=== PATIENT | male | born 1965 | race Caucasian/White ===

== ENCOUNTER 2022-12-02 08:22 | Day surgery (SDC) | payer OTHER ==
[2022-12-01 17:02] VITALS: BMI 31.1
[2022-12-02 10:45] VITALS: TEMP 97.8
[2022-12-02 11:29] VITALS: BP 124/67; PULSE 70; RESP 16
== END 2022-12-02 11:11 | disposition home or self-care (01) ==
LOC: FECT 08:22
PROVIDERS: ATTEND Psychiatry & Neurology Psychiatry
PROC: GZB4ZZZ Other Electroconvulsive Therapy (ICD-10-PCS; principal; 2022-12-02 09:55)
DX: F25.9 Schizoaffective disorder, unspecified (principal)
CPT/HCPCS: 82962; 90870; 94760

== ENCOUNTER 2022-12-06 08:35 | Day surgery (SDC) | payer OTHER ==
[2022-12-05 11:43] VITALS: BMI 31.1
[~2022-12-06 08:35] MED LIST: ACETAMINOPHEN 325 MG TABLET (FP) PO PRN; LACTATED RINGERS SOLUTION 1,000 ML IV SCH
[2022-12-06] MEDS ORDERED: PROPOFOL 20 ML ONE (10:19)
[2022-12-06] MEDS ORDERED: ONDANSETRON 4 MG/2 ML VIAL ONE (10:19)
[2022-12-06] MEDS ORDERED: SUCCINYLCHOLINE CHLORIDE 200 MG/10 ML SYRINGE ONE (10:19)
[2022-12-06] MEDS ORDERED: KETOROLAC TROMETHAMINE 30 MG/1 ML VIAL ONE (10:19)
[2022-12-06 11:53] VITALS: TEMP 98.2
[2022-12-06 12:13] VITALS: BP 116/71; PULSE 64; RESP 16
== END 2022-12-06 12:00 | disposition home or self-care (01) ==
LOC: FECT 08:35
PROVIDERS: ATTEND Psychiatry & Neurology Psychiatry
PROC: GZB4ZZZ Other Electroconvulsive Therapy (ICD-10-PCS; principal; 2022-12-06 10:56)
DX: F25.9 Schizoaffective disorder, unspecified (principal)
CPT/HCPCS: 82962; 90870; 94760

== ENCOUNTER 2022-12-08 08:30 | Day surgery (SDC) | payer OTHER ==
[2022-12-06 17:08] VITALS: BMI 31.1
[2022-12-08] MEDS ORDERED: KETAMINE HCL 500 MG/10 ML VIAL ONE (09:47)
[2022-12-08 10:55] VITALS: RESP 18; TEMP 97.2
[2022-12-08 11:05] VITALS: BP 130/75; PULSE 62
== END 2022-12-08 11:52 | disposition home or self-care (01) ==
LOC: FECT 08:30
PROVIDERS: ATTEND Psychiatry & Neurology Psychiatry
PROC: GZB4ZZZ Other Electroconvulsive Therapy (ICD-10-PCS; principal; 2022-12-08 09:57)
DX: F25.9 Schizoaffective disorder, unspecified (principal)
CPT/HCPCS: 82962; 90870; 94760

== ENCOUNTER 2022-12-09 07:33 | Day surgery (SDC) | payer OTHER ==
[2022-12-07 08:34] VITALS: BMI 31.1
[2022-12-09] MEDS ORDERED: ONDANSETRON 4 MG/2 ML VIAL ONE (08:14)
[2022-12-09] MEDS ORDERED: PROPOFOL 20 ML ONE ×2 (08:14→08:15)
[2022-12-09] MEDS ORDERED: KETOROLAC TROMETHAMINE 30 MG/1 ML VIAL ONE (08:14)
[2022-12-09] MEDS ORDERED: SUCCINYLCHOLINE CHLORIDE 200 MG/10 ML SYRINGE ONE (08:14)
[2022-12-09 09:03] VITALS: RESP 20
[2022-12-09 09:19] VITALS: TEMP 97.7
[2022-12-09 10:19] VITALS: BP 116/72; PULSE 72
== END 2022-12-09 10:30 | disposition home or self-care (01) ==
LOC: FECT 07:33
PROVIDERS: ATTEND Psychiatry & Neurology Psychiatry
PROC: GZB4ZZZ Other Electroconvulsive Therapy (ICD-10-PCS; principal; 2022-12-09 08:18)
DX: F25.9 Schizoaffective disorder, unspecified (principal)
CPT/HCPCS: 82962; 90870; 94760

== ENCOUNTER 2022-12-13 08:12 | Day surgery (SDC) | payer OTHER ==
[2022-12-13 08:32] VITALS: BMI 30.8
[2022-12-13 11:18] VITALS: TEMP 98.4
[2022-12-13 11:20] VITALS: BP 128/76; PULSE 72; RESP 19
== END 2022-12-13 12:27 | disposition home or self-care (01) ==
LOC: FECT 08:12
PROVIDERS: ATTEND Psychiatry & Neurology Psychiatry
PROC: GZB4ZZZ Other Electroconvulsive Therapy (ICD-10-PCS; principal; 2022-12-13 10:08)
DX: F25.1 Schizoaffective disorder, depressive type (principal)
CPT/HCPCS: 82962; 90870; 94760

== ENCOUNTER 2022-12-27 08:35 | Day surgery (SDC) | payer OTHER ==
[2022-12-23 13:58] VITALS: BMI 31.1
[2022-12-27] MEDS ORDERED: KETAMINE HCL 500 MG/10 ML VIAL ONE (12:15)
[2022-12-27 12:51] VITALS: TEMP 97.9
[2022-12-27 13:29] VITALS: RESP 18
[2022-12-27 13:42] VITALS: BP 121/89; PULSE 74
== END 2022-12-27 13:45 ==
LOC: FECT 08:35
PROVIDERS: ATTEND Psychiatry & Neurology Psychiatry
PROC: GZB4ZZZ Other Electroconvulsive Therapy (ICD-10-PCS; principal; 2022-12-27 12:27)
DX: F25.9 Schizoaffective disorder, unspecified (principal)
CPT/HCPCS: 82962; 90870; 94760

== ENCOUNTER 2022-12-29 09:04 | Day surgery (SDC) | payer OTHER ==
[2022-12-27 07:35] VITALS: BMI 31.1
[2022-12-29] MEDS ORDERED: KETAMINE HCL 500 MG/10 ML VIAL ONE (11:01)
[2022-12-29 11:47] VITALS: TEMP 97.3
[2022-12-29 12:08] VITALS: RESP 18
[2022-12-29 12:24] VITALS: BP 131/82; PULSE 69
== END 2022-12-29 12:30 | disposition home or self-care (01) ==
LOC: FECT 09:04
PROVIDERS: ATTEND Psychiatry & Neurology Psychiatry
PROC: GZB4ZZZ Other Electroconvulsive Therapy (ICD-10-PCS; principal; 2022-12-29 11:12)
DX: F25.9 Schizoaffective disorder, unspecified (principal)
CPT/HCPCS: 82962; 90870; 94760

== ENCOUNTER 2022-12-30 08:37 | Day surgery (SDC) | payer OTHER ==
[2022-12-28 15:44] VITALS: BMI 31.1
[2022-12-30 09:18] VITALS: TEMP 97.8
[2022-12-30] MEDS ORDERED: KETOROLAC TROMETHAMINE 30 MG/1 ML VIAL ONE (11:06)
[2022-12-30] MEDS ORDERED: DEXAMETHASONE SOD PHOSPHATE 4 MG/1 ML VIAL ONE (11:10)
[2022-12-30] MEDS ORDERED: ONDANSETRON 4 MG/2 ML VIAL ONE (11:10)
[2022-12-30] MEDS ORDERED: PROPOFOL 20 ML ONE (11:10)
[2022-12-30 12:39] VITALS: RESP 18
[2022-12-30 12:42] VITALS: BP 131/84; PULSE 75
== END 2022-12-30 12:45 ==
LOC: FECT 08:37
PROVIDERS: ATTEND Psychiatry & Neurology Psychiatry
PROC: GZB4ZZZ Other Electroconvulsive Therapy (ICD-10-PCS; principal; 2022-12-30 11:19)
DX: F25.9 Schizoaffective disorder, unspecified (principal)
CPT/HCPCS: 82962; 90870; 94760

== ENCOUNTER 2023-01-03 08:44 | Day surgery (SDC) | payer OTHER ==
[2023-01-02 07:24] VITALS: BMI 31.1
[2023-01-03] MEDS ORDERED: KETAMINE HCL 500 MG/10 ML VIAL ONE (10:46)
[2023-01-03 11:48] VITALS: TEMP 98.2
[2023-01-03 11:52] VITALS: RESP 18
[2023-01-03 12:42] VITALS: BP 139/89; PULSE 64
== END 2023-01-03 12:30 ==
LOC: FECT 08:44
PROVIDERS: ATTEND Psychiatry & Neurology Psychiatry
PROC: GZB4ZZZ Other Electroconvulsive Therapy (ICD-10-PCS; principal; 2023-01-03 10:58)
DX: F25.1 Schizoaffective disorder, depressive type (principal)
CPT/HCPCS: 82962; 90870; 94760

== ENCOUNTER 2023-01-05 08:27 | Day surgery (SDC) | payer OTHER ==
[2023-01-03 15:11] VITALS: BMI 31.1
[2023-01-05] MEDS ORDERED: KETAMINE HCL 500 MG/10 ML VIAL ONE (10:36)
[2023-01-05] MEDS ORDERED: SUCCINYLCHOLINE CHLORIDE 200 MG/10 ML SYRINGE ONE ×2 (10:39→11:03)
[2023-01-05] MEDS ORDERED: DEXAMETHASONE SOD PHOSPHATE 4 MG/1 ML VIAL ONE (10:41)
[2023-01-05] MEDS ORDERED: ONDANSETRON 4 MG/2 ML VIAL ONE (10:41)
[2023-01-05] MEDS ORDERED: KETOROLAC TROMETHAMINE 30 MG/1 ML VIAL ONE (10:41)
[2023-01-05 12:47] VITALS: RESP 16; TEMP 98
[2023-01-05 12:49] VITALS: BP 126/80; PULSE 74
== END 2023-01-05 12:25 ==
LOC: FECT 08:27
PROVIDERS: ATTEND Psychiatry & Neurology Psychiatry
PROC: GZB4ZZZ Other Electroconvulsive Therapy (ICD-10-PCS; principal; 2023-01-05 10:44)
DX: F25.9 Schizoaffective disorder, unspecified (principal)
CPT/HCPCS: 82962; 90870; 94760

== ENCOUNTER 2023-01-12 08:36 | Day surgery (SDC) | payer OTHER ==
[2023-01-03 16:48] VITALS: BMI 31.1
[2023-01-12 09:17] VITALS: RESP 18
[2023-01-12] MEDS ORDERED: KETAMINE HCL 500 MG/10 ML VIAL ONE (10:33)
[2023-01-12] MEDS ORDERED: PROPOFOL 20 ML ONE (10:33)
[2023-01-12] MEDS ORDERED: KETOROLAC TROMETHAMINE 30 MG/1 ML VIAL ONE (10:33)
[2023-01-12] MEDS ORDERED: ONDANSETRON 4 MG/2 ML VIAL ONE (10:33)
[2023-01-12] MEDS ORDERED: SUCCINYLCHOLINE CHLORIDE 200 MG/10 ML SYRINGE ONE (10:34)
[2023-01-12 11:27] VITALS: BP 132/91; PULSE 67; TEMP 97.8
== END 2023-01-12 12:00 ==
LOC: FECT 08:36
PROVIDERS: ATTEND Psychiatry & Neurology Psychiatry
PROC: GZB4ZZZ Other Electroconvulsive Therapy (ICD-10-PCS; principal; 2023-01-12 10:40)
DX: F25.9 Schizoaffective disorder, unspecified (principal)
CPT/HCPCS: 82962; 90870; 94760

== ENCOUNTER 2023-01-13 06:37 | Day surgery (SDC) | payer OTHER ==
[2023-01-12 17:24] VITALS: BMI 31.1
[2023-01-13] MEDS ORDERED: KETAMINE HCL 500 MG/10 ML VIAL ONE (07:33)
[2023-01-13 08:50] VITALS: TEMP 97.3
[2023-01-13 09:05] VITALS: BP 128/71; PULSE 68; RESP 18
== END 2023-01-13 09:09 | disposition home or self-care (01) ==
LOC: FECT 06:37
PROVIDERS: ATTEND Psychiatry & Neurology Psychiatry
PROC: GZB4ZZZ Other Electroconvulsive Therapy (ICD-10-PCS; principal; 2023-01-13 07:50)
DX: F25.1 Schizoaffective disorder, depressive type (principal)
CPT/HCPCS: 82962; 90870; 94760

== ENCOUNTER 2023-01-17 09:17 | Day surgery (SDC) | payer OTHER ==
[2023-01-13 08:49] VITALS: BMI 31.1
[2023-01-17] MEDS ORDERED: KETAMINE HCL 500 MG/10 ML VIAL ONE (11:05)
[2023-01-17 12:09] VITALS: RESP 16; TEMP 97.8
[2023-01-17 12:35] VITALS: BP 130/68; PULSE 68
== END 2023-01-17 12:35 ==
LOC: FECT 09:17
PROVIDERS: ATTEND Psychiatry & Neurology Psychiatry
PROC: GZB4ZZZ Other Electroconvulsive Therapy (ICD-10-PCS; principal; 2023-01-17 11:17)
DX: F25.1 Schizoaffective disorder, depressive type (principal)
CPT/HCPCS: 82962; 90870; 94760

== ENCOUNTER 2023-01-20 07:19 | Day surgery (SDC) | payer OTHER ==
[2023-01-13 09:03] VITALS: BMI 31.1
[2023-01-20] MEDS ORDERED: KETAMINE HCL 500 MG/10 ML VIAL ONE (09:05)
[2023-01-20 09:33] VITALS: RESP 16
[2023-01-20 10:17] VITALS: TEMP 98.4
[2023-01-20 10:36] VITALS: BP 115/71; PULSE 72
== END 2023-01-20 10:44 ==
LOC: FECT 07:19
PROVIDERS: ATTEND Psychiatry & Neurology Psychiatry
PROC: GZB4ZZZ Other Electroconvulsive Therapy (ICD-10-PCS; principal; 2023-01-20 09:15)
DX: F25.9 Schizoaffective disorder, unspecified (principal)
CPT/HCPCS: 82962; 90870; 94760

== ENCOUNTER 2023-01-26 08:42 | Day surgery (SDC) | payer OTHER ==
[2023-01-20 07:03] VITALS: BMI 31.1
[2023-01-26] MEDS ORDERED: KETAMINE HCL 500 MG/10 ML VIAL ONE (10:06)
[2023-01-26] MEDS ORDERED: PROPOFOL 20 ML ONE (10:08)
[2023-01-26] MEDS ORDERED: SUCCINYLCHOLINE CHLORIDE 200 MG/10 ML SYRINGE ONE (10:08)
[2023-01-26] MEDS ORDERED: ONDANSETRON 4 MG/2 ML VIAL ONE (10:09)
[2023-01-26] MEDS ORDERED: KETOROLAC TROMETHAMINE 30 MG/1 ML VIAL ONE (10:09)
[2023-01-26] MEDS ORDERED: DEXAMETHASONE SOD PHOSPHATE 4 MG/1 ML VIAL ONE (10:09)
[2023-01-26] MEDS ORDERED: LACTATED RINGERS SOLUTION 1,000 ML IV SCH (10:30)
[2023-01-26 11:31] VITALS: TEMP 97.4
[2023-01-26 11:33] VITALS: BP 134/81; PULSE 67; RESP 19
== END 2023-01-26 11:43 | disposition home or self-care (01) ==
LOC: FECT 08:42
PROVIDERS: ATTEND Psychiatry & Neurology Psychiatry
PROC: GZB4ZZZ Other Electroconvulsive Therapy (ICD-10-PCS; principal; 2023-01-26 10:13)
DX: F25.9 Schizoaffective disorder, unspecified (principal)
CPT/HCPCS: 82962; 90870; 94760

== ENCOUNTER 2023-01-31 09:12 | Day surgery (SDC) | payer OTHER ==
[2023-01-31 09:41] VITALS: BMI 31.1
[2023-01-31] MEDS ORDERED: KETAMINE HCL 500 MG/10 ML VIAL ONE (11:10)
[2023-01-31] MEDS ORDERED: LACTATED RINGERS SOLUTION 1,000 ML IV SCH (11:15)
[2023-01-31 12:29] VITALS: RESP 19; TEMP 98.2
[2023-01-31 12:31] VITALS: BP 125/74; PULSE 72
== END 2023-01-31 12:30 | disposition home or self-care (01) ==
LOC: FECT 09:12
PROVIDERS: ATTEND Student in an Organized Health Care Education/Training Program
PROC: GZB4ZZZ Other Electroconvulsive Therapy (ICD-10-PCS; principal; 2023-01-31 11:24)
DX: F25.9 Schizoaffective disorder, unspecified (principal)
CPT/HCPCS: 82962; 90870; 94760

== ENCOUNTER 2023-02-03 07:17 | Day surgery (SDC) | payer OTHER ==
[2023-01-31 16:18] VITALS: BMI 31.1
[~2023-02-03 07:17] MED LIST changes: -ACETAMINOPHEN 325 MG TABLET (FP) PO PRN
[2023-02-03 07:35] VITALS: TEMP 97.8
[2023-02-03] MEDS ORDERED: KETAMINE HCL 500 MG/10 ML VIAL ONE (09:16)
[2023-02-03 10:40] VITALS: RESP 16
[2023-02-03 11:02] VITALS: BP 128/80; PULSE 71
== END 2023-02-03 11:00 ==
LOC: FECT 07:17
PROVIDERS: ATTEND Student in an Organized Health Care Education/Training Program
PROC: GZB4ZZZ Other Electroconvulsive Therapy (ICD-10-PCS; principal; 2023-02-03 09:52)
DX: F25.9 Schizoaffective disorder, unspecified (principal)
CPT/HCPCS: 82962; 90870; 94760